=== PATIENT | male | born 1970 | race Caucasian/White ===

== ENCOUNTER 2016-07-19 10:51 | Emergency (ER) | payer MEDICAID ==
[~2016-07-19] VITALS: Ht 160 cm; Wt 83.9 kg
[2016-07-19 11:30] VITALS: BP 131/77
--- NOTE | 2016-07-19 13:00 | NUR ---
PT AMBULATED TO BED 3 AT THIS TIME.
--- NOTE | 2016-07-19 13:02 | NUR ---
46M BIB FAMILY C/O PAIN ABOVE RT EYE, THROBBING, RADIATES TO RT SIDE OF FACE, 6/ X 2 DAYS; PT WENT TO SEE PCP, REFFERRED TO ER FOR FURTHER TX; REDNESS/SWELLING NOTED ABOVE RT EYE; NO DRAINAGE NOTED TO EYE AT THIS TIME; PT DENIES TRAUMA TO EYE OR BLURRY VISION; PT STATES HAD SOMETHING ON SKIN ABOVE RT EYE MONDAY, SCRATCHED IT, AND REDNESS/SWELLING OCCURED; A&OX4, BL LUNG SOUNDS CLEAR, RR EVEN/UNLABORED, SKIN IS WARM/DRY/INTACT AT THIS TIME; PT DENIES N/V/D AT THIS TIME; PT RESTING IN BED W/ HOB ELEVATED AND IN LOWEST POSITION; POSITIONED FOR COMFORT; FAMILY AT BEDSIDE; ER MD MADE AWARE OF STATUS. WILL CONTINUE TO MONITOR.
--- NOTE | 2016-07-19 13:23 | NUR ---
ER MD DR. VELASCO EVALUATING PT AT BEDSIDE.
[2016-07-19] MEDS ORDERED: AMPICILLIN/SULBACTAM 1.5 GM in NACL 0.9% 50 ML IV ONE (13:25)
--- NOTE | 2016-07-19 13:30 | NUR ---
PT STATES DOES NOT NEED OXYGEN AT THIS TIME; O2 SAT 99% ON ROOM AIR AT THIS TIME; WILL CONTINUE TO MONITOR.
[2016-07-19] MEDS ORDERED: AMPICILLIN/SULBACTAM 1.5 GM VIAL ONE (14:04)
--- NOTE | 2016-07-19 14:42 | NUR ---
IV UNASYN 1.5 GM IN SODIUM CHLORIDE 0.9% 50ML STOP TIME AT 1442; TOTAL IV FLUIDS INFUSED 50ML.
--- NOTE | 2016-07-19 14:45 | NUR ---
IV removed, catheter intact and site benign. Applied folded 4x4 gauze and tape to stop bleeding. PT TOLERATED PROCEDURE WELL.
[2016-07-19 14:48] VITALS: BP 130/84
--- NOTE | 2016-07-19 14:48 | NUR ---
Patient discharged with v/s stable. Written and verbal after care instructions given and explained. Patient alert, oriented and verbalized understanding of instructions. Ambulatory with steady gait. All questions addressed prior to discharge. ID band removed. Patient advised to follow up with PMD. Rx of KEFLEX 500MG & MOTRIN 600MG given. Patient educated on indication of medication including possible reaction and side effects. Opportunity to ask questions provided and answered.
== END 2016-07-19 14:48 | disposition home or self-care (01) ==
LOC: MED 10:51
DX: L03.213 Periorbital cellulitis (principal); E11.9 Type 2 diabetes mellitus without complications
CPT/HCPCS: 36415; 70480; 80053; 83605; 85025; 87040; 96365; 99285; J0295

== ENCOUNTER 2023-10-23 11:24 | Emergency (ER) | payer OTHER ==
[~2023-10-23] VITALS: Ht 160 cm; Wt 87.7 kg
[2023-10-23 11:37] VITALS: BP 125/74; PULSE 85; RESP 18; TEMP 98.4; O2SAT 97
[2023-10-23] MEDS: KETOROLAC 30 MG/ML VIAL IM ONE (12:12)
[2023-10-23] MEDS ORDERED: NAPR-1704 PO (13:49)
[2023-10-23 14:15] VITALS: BP 122/72; PULSE 88; RESP 16; TEMP 98; O2SAT 99
== END 2023-10-23 14:15 | disposition home or self-care (01) ==
LOC: MED 11:24
DX: S62.336A Displaced fracture of neck of fifth metacarpal bone, right hand, initial encounter for closed fracture (principal); M25.562 Pain in left knee; M25.561 Pain in right knee; M54.6 Pain in thoracic spine; R10.9 Unspecified abdominal pain; Z79.899 Other long term (current) drug therapy; V49.88XA Car occupant (driver) (passenger) injured in other specified transport accidents, initial encounter; Y93.89 Activity, other specified; Y92.89 Other specified places as the place of occurrence of the external cause; Y99.8 Other external cause status
CPT/HCPCS: 29125; 73130; 73562; 96372; 99284; J1885